=== PATIENT | female | born 1965 | race Caucasian/White ===

== ENCOUNTER 2017-12-30 08:01 | Emergency (ER) | payer SELFPAY ==
[2017-12-30 08:22] VITALS: BP 142/95; PULSE 84; RESP 12; TEMP 99.1; O2SAT 98
[2017-12-30] MEDS ORDERED: CLINDAMYCIN 900 MG/NS PREMIX 50 ML IV ONE (08:45)
[2017-12-30 08:55] LABS: BASOPHIL % 0.3 % (0.0-2.0); EOSINOPHIL # 0.1 TH/MM3 (0-0.4); EOSINOPHIL % 1.1 % (0.0-4.0); HEMATOCRIT 38.1 % (35.0-46.0); HEMOGLOBIN 12.8 GM/DL (11.6-15.3); LYMPH % 8.7 % (9.0-44.0); MEAN CELL VOLUME 88.9 FL (80.0-100.0); MEAN CORPUSCULAR HEMOGLOBIN 29.8 PG (27.0-34.0); MEAN CORPUSCULAR HGB CONC 33.5 % (32.0-36.0); MEAN PLATELET VOLUME 8.9 FL (7.0-11.0); MONO % 5.9 % (0.0-8.0); MONOCYTE # 0.7 TH/MM3 (0-0.9); PLATELET COUNT 269 TH/MM3 (150-450); RED BLOOD COUNT 4.28 MIL/MM3 (4.00-5.30); RED CELL DISTRIBUTION WIDTH 13.1 % (11.6-17.2); WHITE BLOOD COUNT 11.9 TH/MM3 (4.0-11.0)
[2017-12-30] MEDS ORDERED: KETOROLAC TROMETHAMINE 30 MG/ML (IVP) VIAL IV PUSH ONE (09:00)
--- NOTE | 2017-12-30 09:00 | PD ---
HPI Chief Complaint: Oral / Dental Pain or Problem Time Seen by Provider: 08:29 Travel History International Travel<30 days: No Contact w/Intl Traveler<30days: No Traveled to known affect area: No History of Present Illness HPI Patient is a 52-year-old female presenting to the emergency depart for evaluation of right neck swelling. Patient believes it is related to a chipped second molar. She reports eating a sub-sandwich 2 days ago, her symptoms started yesterday. When she woke up this morning her neck was swollen and it was hard to swallow. Patient denies any fever, chills, nausea, vomiting, headache. Patient reports her pain is a 5 out of 10, aching and throbbing. Symptoms are constant, worse when she moves her jaw. Symptoms started fairly abruptly with a significant evolution of her symptoms overnight. PFSH Past Medical History Medical History: Denies Significant Hx Influenza Vaccination: No ?: Not Past Surgical History Surgical History: No Previous Surgery Social History Alcohol Use: No Tobacco Use: No Substance Use: No Allergies-Medications (Allergen,Severity, Reaction): Coded Allergies: No Known Allergies (Unverified , 12/30/17) Review of Systems Except as stated in HPI: all other systems reviewed are Neg HENT: Positive: Neck Pain, Dental Difficulties Cardiovascular: Positive: Edema (Right neck, submandibular) Physical Exam Narrative GENERAL: Well-developed, well-nourished, alert female. Presenting in no acute distress. SKIN: Warm and dry. HEAD: Atraumatic. Normocephalic. EYES: Pupils equal and round. No scleral icterus. No injection or drainage. ENT: No nasal bleeding or discharge. Mucous membranes pink and moist. MOUTH: Mucous membranes moist, no lesions, tongue and gums appear normal. Right lower second molar is chipped. NECK: Trachea midline. No JVD. Edema noted to the right submandibular space, no fluctuance noted. Tender to palpation. CARDIOVASCULAR: Regular rate and rhythm. RESPIRATORY: No accessory muscle use. Clear to auscultation. Breath sounds equal bilaterally. GASTROINTESTINAL: Abdomen soft, non-tender, nondistended. Hepatic and splenic margins not palpable. MUSCULOSKELETAL: Extremities without clubbing, cyanosis, or edema. No obvious deformities. NEUROLOGICAL: Awake and alert. No obvious cranial nerve deficits. Motor grossly within normal limits. Five out of 5 muscle strength in the arms and legs. Normal speech. PSYCHIATRIC: Appropriate mood and affect; insight and judgment normal. Data Data Last Documented VS Vital Signs Date Time Temp Pulse Resp B/P (MAP) Pulse Ox O2 Delivery O2 Flow Rate FiO2 12/30/17 08:22 99.1 84 12 142/95 (111) [address] Soft Tiss Neck W Iv Cont (12/30/17 ) Complete Blood Count With Diff (12/30/17 08:33) Basic Metabolic Panel (Bmp) (12/30/17 08:33) Iv Access Insert/Monitor (12/30/17 08:33) Clindamycin 900 Mg/Ns Premix (Cleocin 90 (12/30/17 08:45) Ketorolac Inj (Toradol Inj) (12/30/17 09:00) Iohexol 350 Inj (Omnipaque 350 Inj) (12/30/17 09:09) Al-Mag Hy-Si 40-40-4 Mg/Ml Liq (Mag-Al P (12/30/17 10:30) Lidocaine 2% Viscous (Xylocaine 2% Visco (12/30/17 10:30) Labs Laboratory Tests Test 12/30/17 08:41 White Blood Count 11.9 TH/MM3 Red Blood Count 4.28 MIL/MM3 Hemoglobin 12.8 GM/DL Hematocrit 38.1 % Mean Corpuscular Volume 88.9 FL Mean Corpuscular Hemoglobin 29.8 PG Mean Corpuscular Hemoglobin Concent 33.5 % Red Cell Distribution Width 13.1 % Platelet Count 269 TH/MM3 Mean Platelet Volume 8.9 FL Neutrophils (%) (Auto) 84.0 % Lymphocytes (%) (Auto) 8.7 % Monocytes (%) (Auto) 5.9 % Eosinophils (%) (Auto) 1.1 % Basophils (%) (Auto) 0.3 % Neutrophils # (Auto) 10.0 TH/MM3 Lymphocytes # (Auto) 1.0 TH/MM3 Monocytes # (Auto) 0.7 TH/MM3 Eosinophils # (Auto) 0.1 TH/MM3 Basophils # (Auto) 0.0 TH/MM3 CBC Comment DIFF FINAL Differential Comment Blood Urea Nitrogen 9 MG/DL Creatinine 0.63 MG/DL Random Glucose 115 MG/DL Calcium Level 8.8 MG/DL Sodium Level 139 MEQ/L Potassium Level 3.7 MEQ/L Chloride Level 105 MEQ/L Carbon Dioxide Level 23.9 MEQ/L Anion Gap 10 MEQ/L Estimat Glomerular Filtration Rate 100 ML/MIN MDM Medical Decision Making Medical Screen Exam Complete: Yes Emergency Medical Condition: Yes Interpretation(s) Vital Signs Date Time Temp Pulse Resp B/P (MAP) Pulse Ox O2 Delivery O2 Flow Rate FiO2 12/30/17 08:22 99.1 84 12 142/95 (111) 98 Laboratory Tests Test 12/30/17 08:41 White Blood Count 11.9 TH/MM3 Red Blood Count 4.28 MIL/MM3 Hemoglobin 12.8 GM/DL Hematocrit 38.1 % Mean Corpuscular Volume 88.9 FL Mean Corpuscular Hemoglobin 29.8 PG Mean Corpuscular Hemoglobin Concent 33.5 % Red Cell Distribution Width 13.1 % Platelet Count 269 TH/MM3 Mean Platelet Volume 8.9 FL Neutrophils (%) (Auto) 84.0 % Lymphocytes (%) (Auto) 8.7 % Monocytes (%) (Auto) 5.9 % Eosinophils (%) (Auto) 1.1 % Basophils (%) (Auto) 0.3 % Neutrophils # (Auto) 10.0 TH/MM3 Lymphocytes # (Auto) 1.0 TH/MM3 Monocytes # (Auto) 0.7 TH/MM3 Eosinophils # (Auto) 0.1 TH/MM3 Basophils # (Auto) 0.0 TH/MM3 CBC Comment DIFF FINAL Differential Comment Blood Urea Nitrogen 9 MG/DL Creatinine 0.63 MG/DL Random Glucose 115 MG/DL Calcium Level 8.8 MG/DL Sodium Level 139 MEQ/L Potassium Level 3.7 MEQ/L Chloride Level 105 MEQ/L Carbon Dioxide Level 23.9 MEQ/L Anion Gap 10 MEQ/L Estimat Glomerular Filtration Rate 100 ML/MIN Vital Signs Date Time Temp Pulse Resp B/P (MAP) Pulse Ox O2 Delivery O2 Flow Rate FiO2 12/30/17 08:22 99.1 84 12 142/95 (111) 98 Differential Diagnosis Dental abscess versus lymphadenitis versus airway obstruction versus Ramirez's angina versus other Narrative Course Patient is a 52-year-old female that presented to the emergency department for evaluation of right neck swelling and pain. Patient's vital signs are stable, labs and imaging ordered and pending to rule out abscess or airway compromise. Patient was given ibuprofen for pain. Clindamycin IV was ordered and given. CBC with white blood cell count of 11.9, chemistry is unremarkable. CT scan of the neck shows right submandibular inflammatory process involving the submandibular gland characteristic of sialoadenitis. Discrete obstructing stone or ductal dilatation is identified. Reactive right submandibular lymph node. Discussed findings with my attending physician. Patient will be discharged home, she is encouraged to obtain sour candies to increase saliva production. Patient continues to feel as if she has a dental infection. Patient is requesting an antibiotic, she was advised that with tooth being chip she could have a nerve exposed causing pain. She was encouraged to follow-up with her dentist. She is further encouraged return to emergency department for any new or worsening symptoms. Patient verbalized understanding of discharge instructions. Patient stable for discharge. Diagnosis Primary Impression: Sialoadenitis of submandibular gland Additional Impression: Tooth ache Referrals: Dentist 2 days Patient Instructions: General Instructions, Sialoadenitis (ED), Toothache (ED) Additional Instructions: Follow-up with your dentist Obtain sour candies to increase saliva production. Return to emergency department immediately for any new or worsening symptoms. Follow-up with your primary doctor Med/Other Pt SpecificInfo: Prescription(s) given Scripts Amoxicillin (Amoxicillin) 875 Mg Tab 875 MG PO BID for Infection for 10 Days, #20 TAB 0 Refills Prov: Cheryle Alatorre 12/30/17 Disposition: 01 DISCHARGE HOME Condition: Stable Cheryle Alatorre Dec 30, 2017 09:00
[2017-12-30 09:08] LABS: BICARBONATE 23.9 MEQ/L (21.0-32.0); CALCIUM 8.8 MG/DL (8.5-10.1); CREATININE 0.63 MG/DL (0.50-1.00)
[2017-12-30] MEDS ORDERED: IOHEXOL 350 MG/ML 10 ML VIAL (for RAD DIAG) IVCONTRAST ONE (09:09)
--- NOTE | 2017-12-30 10:20 | RADRPT ---
EXAM DATE: 12/30/2017 9:16 AM EDT AGE/SEX: 52 years / Female INDICATIONS: Right side neck swelling and pain. CLINICAL DATA: This is the patient's initial encounter. Patient reports that signs and symptoms have been present for 2 days and indicates a pain score of 8/10. MEDICAL/SURGICAL HISTORY: None. None. RADIATION DOSE: 17.43 CTDI (mGy) COMPARISON: No prior exams available for comparison. TECHNIQUE: Helical acquisition was performed using a multirow detector CT scanner during the adminis tration of 71 ml Omnipaque 350 (iohexol) nonionic water-soluble contrast as a single exam dose. Usi ng automated exposure control and adjustment of the mA and/or kV according to patient size, radiation dose was kept as low as reasonably achievable to obtain optimal diagnostic quality images. FINDINGS: Nasopharynx: The nasopharyngeal airway has a normal configuration. No mucosal thickening or mass is seen. Oropharynx: The intrinsic muscles of the tongue are symmetric. The tonsillar pillars are intact. T he prevertebral soft tissues are not thickened. Larynx: The supraglottic, glottic, and infraglottic structures are intact. Parapharyngeal: The parapharyngeal space is intact. Salivary Glands: Asymmetric enlargement of the right submandibular gland as well as change in texture is characteristic of an acute inflammatory process. There is adjacent soft tissue swelling extending into the submandibular soft tissues. There is no clear evidence of sialolith. The parotid and subman dibular glands are otherwise intact. Lymph Nodes: A reactive lymph node measuring 10 x 16 mm in size is identified in the right submandib ular region. No other significant carlton prominence is noted. Thyroid: Homogeneous enhancement without evidence of nodule. Bones: Unremarkable. Post Contrast: No abnormal areas of enhancement seen. CONCLUSION: 1. Right submandibular inflammatory process involving the submandibular gland characteristic of subm andibular gland sialoadenitis. Discrete obstructing stone or ductal dilatation is not identified. 2. Reactive right submandibular lymph node. 3. No other significant abnormality noted. Electronically signed by: Nilton Zapata MD 12/30/2017 10:18 AM EDT
[2017-12-30] MEDS ORDERED: LIDOCAINE VISCOUS 2% SOLN 15 ML UDC PO ONE (10:30)
[2017-12-30] MEDS ORDERED: ALUMINUM/MAGNESIUM/SIMETH 30 ML CUP PO ONE (10:30)
[2017-12-30] MEDS ORDERED: AMOX875T PO (10:38)
== END 2017-12-30 10:45 | disposition home or self-care (01) ==
LOC: NEPD 08:01
DX: K11.20 Sialoadenitis, unspecified (principal)
CPT/HCPCS: 70491; 80048; 85025; 96365; 96375; 99284; J1885; Q9967